=== PATIENT | female | born 1945 | race Two or more races ===

== ENCOUNTER 2022-08-12 13:58 | Emergency (ER) | payer OTHER ==
[~2022-08-12] VITALS: Ht 157.5 cm; Wt 77.1 kg
[2022-08-12] MEDS ORDERED: CHILDREN'S ASPI81 MG PO (14:53)
[2022-08-12] MEDS ORDERED: LIPITOR40 M1 PO (14:54)
[2022-08-12] MEDS ORDERED: MICARDIS40 MG PO (14:54)
[2022-08-12] MEDS ORDERED: CARVEDILOL12.5 MG (14:54)
[2022-08-12] MEDS ORDERED: JANUMET XR 50-1 EAC1 PO (14:54)
== END 2022-08-12 20:10 | disposition home or self-care (01) ==
LOC: ER 13:58
DX: S80.01XA Contusion of right knee, initial encounter (principal); S40.011A Contusion of right shoulder, initial encounter; S00.33XA Contusion of nose, initial encounter; W18.30XA Fall on same level, unspecified, initial encounter; Y93.9 Activity, unspecified; Y92.018 Other place in single-family (private) house as the place of occurrence of the external cause; Y99.9 Unspecified external cause status; I10 Essential (primary) hypertension; Z88.0 Allergy status to penicillin